=== PATIENT | male | born 1965 | race Caucasian/White ===

== ENCOUNTER 2017-08-27 11:37 | Day surgery (SDC) | payer OTHER ==
[2017-08-27] MEDS ORDERED: MIDAZOLAM 1 MG/ML 2 ML INJ ×3 (13:50)
[2017-08-27] MEDS ORDERED: FENTAnyl 50 MCG/ML VIAL (13:50)
== END 2017-08-27 15:40 | disposition home or self-care (01) ==
LOC: GIL 11:37
DX: R19.4 Change in bowel habit (principal); K29.60 Other gastritis without bleeding; D12.3 Benign neoplasm of transverse colon
CPT/HCPCS: 43239; 87081; 88305